=== PATIENT | male | born 1960 ===

== ENCOUNTER 2018-07-05 10:05 | Emergency (ER) | payer OTHER, MEDICARE ==
[2018-07-05 10:06] VITALS: BMI 36.1
[2018-07-05 10:33] VITALS: RESP 18
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
[2018-07-05 15:13] VITALS: BP 130/76; PULSE 76; TEMP 98; O2SAT 100
== END 2018-07-05 14:00 | disposition home or self-care (01) ==
LOC: H.ER 10:05
DX: S43.401A Unspecified sprain of right shoulder joint, initial encounter (principal); S39.012A Strain of muscle, fascia and tendon of lower back, initial encounter; V43.52XA Car driver injured in collision with other type car in traffic accident, initial encounter; Y92.410 Unspecified street and highway as the place of occurrence of the external cause; I10 Essential (primary) hypertension; E78.00 Pure hypercholesterolemia, unspecified